=== PATIENT | male | born 1960 | race Caucasian/White ===

== ENCOUNTER → 2016-11-10 | Outpatient (CLI) | payer BC ==
[~2016-11-10] MED LIST: ACET1TAB84 PO; GADAVIST IV PRN; HYZAAR PO; IBUP-103 PO; LOSA100T26 PO; SERT-234 PO
--- NOTE | 2016-11-10 18:50 | DIAGNOSTIC IMAGING REPORT ---
Brain MRI WITH AND WITHOUT CONTRAST HISTORY: Left HAND WEAKNESS/TREMOR TECHNIQUE: Multiplanar multisequence MRI of the brain was performed both before and after the intravenous administration of contrast. COMPARISON STUDY: None. FINDINGS: There are no areas of restricted diffusion to suggest acute infarction. The midline structures are intact. The paranasal sinuses are clear. The mastoid air cells are clear. The ventricles and sulci are within normal limits for age. There is no mass, hematoma, midline shift. The major vascular flow-voids at the skull base are well maintained. Postcontrast sequences show no areas of abnormal enhancement. There is an 11 mm cystic focus lateral to the left pterygopalatine fossa best seen on axial T2 image 7. IMPRESSION: 1. No significant abnormality identified within the brain. No acute intracranial process. 2. An 11 mm cyst lateral to the left pterygopalatine fossa. This has a benign appearance. However, if the patient is experiencing left facial abnormalities then consider ENT follow-up and/or short term MRI follow-up to ensure stability. Electronically signed by: Milad Quinones M.D. 11/10/2016 6:48 PM Dictated Date/Time: 11/10/2016 6:40 PM
== END | disposition home or self-care (01) ==
LOC: C.MRI 17:36
PROVIDERS: ATTEND Family Medicine
DX: M62.81 Muscle weakness (generalized) (principal); G93.0 Cerebral cysts

== ENCOUNTER → 2017-01-04 | Outpatient (CLI) | payer BC ==
[~2017-01-04] MED LIST changes: -GADAVIST IV PRN; -LOSA100T26 PO; +LOSA100T33 PO
[2017-01-04 18:43] LABS: LYME DISEASE AB IGG NEG (NEG)
[2017-01-04 18:44] LABS: LYME DISEASE AB IGM NEG (NEG)
== END | disposition home or self-care (01) ==
LOC: C.LABBC 12:49
PROVIDERS: ATTEND Psychiatry & Neurology Neurology
DX: G47.62 Sleep related leg cramps (principal)

== ENCOUNTER → 2017-03-28 | Day surgery (SDC) | payer BC ==
[2017-03-08 14:18] VITALS: Ht 180.3 cm; Wt 88.6 kg
[~2017-03-28] VITALS: Ht 180.3 cm; Wt 88.6 kg
[~2017-03-28] MED LIST changes: +LIDOCAINE HCL 2% 2 ML VIAL (20MG/ML) ONE; +LOSA100T26 PO; -LOSA100T33 PO; +PROPOFOL IV EMULSION 10 MG/ML 20 ML VIAL IV ONE
[2017-03-28 13:27] VITALS: TEMP 36.8
--- NOTE | 2017-03-28 14:01 | Endo History and Physical ---
History & Physical Date of Service: Mar 28, 2017. Chief Complaint: Screening, Hx of polyps Referring Physician: Mony History of Present Illness 56 yo CM who presents for colonoscopy secondary to history of colon polyps. Past Surgical History Hx Cardiac Surgery: No Hx Internal Defibrillator: No Hx Pacemaker: No Hx Abdominal Surgery: No Hx of Implantable Prosthesis: No Hx Post-Op Nausea and Vomiting: No Hx Cancer Surgery: No Hx Thoracic Surgery: No Hx Orthopedic: No Hx Urinary Tract Surgery: No Family History Polyp Social History Smoking Status: Never Smoker Hx Substance Use: No Hx Alcohol Use: Yes (OCC SOCIAL) Allergies Coded Allergies: Penicillins (Unverified Allergy, Unknown, RASH, 03/28/17) Sulfa Antibiotics (Unverified Allergy, Unknown, RASH, 03/28/17) Current Medications Reported Home Medications Medications Dose Route/Sig Max Daily Dose Days Date Category Dose Instructions Advil (Ibuprofen) 200 Mg Tab 400-600 Mg PO PRN 03/08/17 Reported Tylenol Arthritis Ext Rel (Acetaminophen) 650 Mg Cplt 1,300 Mg PO PRN 03/08/17 Reported Zoloft (Sertraline HCl) 100 Mg Tab 100 Mg PO QPM 03/08/17 Reported [Hyzaar] 1 Tab PO QAM 03/08/17 Reported 100/12.5 MG Vital Signs Weight (Kilograms): 88.64 Height (Feet): 5 Height (Inches): 11 Date Time Temp Pulse Resp B/P (MAP) Pulse Ox O2 Delivery O2 Flow Rate FiO2 03/28/17 13:27 36.8 70 18 127/86 (100) 98 Room Air Physical Exam General Appearance: WD/WN, no apparent distress Respiratory/Chest: Auscultation: breath sounds normal Cardiovascular: Heart Auscultation: RRR Abdomen: Bowel Sounds: normal Inspection & Palpation: soft, non-distended, no tenderness, guarding & rebound Assessment and Plan Assessment: 56 yo CM who presents for colonoscopy secondary to history of colon polyps. Plan: Proceed with colonoscopy.
--- NOTE | 2017-03-28 14:22 | Discharge Instructions ---
Endoscopy Patient Instructions Date / Procedure(s) Performed Mar 28, 2017. Colonoscopy Allergy Information Coded Allergies: Penicillins (Unverified Allergy, Unknown, RASH, 03/28/17) Sulfa Antibiotics (Unverified Allergy, Unknown, RASH, 03/28/17) Discharge Date / Findings Mar 28, 2017. Colon polyp Rectal polyps Diverticulosis Internal hemorrhoids Medication Instructions OK to resume all medications today as prescribed Reported Home Medications Medications Dose Route/Sig Max Daily Dose Days Date Category Dose Instructions Advil (Ibuprofen) 200 Mg Tab 400-600 Mg PO PRN 03/08/17 Reported Tylenol Arthritis Ext Rel (Acetaminophen) 650 Mg Cplt 1,300 Mg PO PRN 03/08/17 Reported Zoloft (Sertraline HCl) 100 Mg Tab 100 Mg PO QPM 03/08/17 Reported [Hyzaar] 1 Tab PO QAM 03/08/17 Reported 100/12.5 MG Provider Instructions Activity Restrictions - No exercising or heavy lifting for 24 hours. - Do not drink alcohol the day of the procedure. - Do not drive a car or operate machinery until the day after the procedure. - Do not make any important decisions or sign important papers in 24 hours after the procedure. Following Day: - Return to full activity which may include returning to work/school. Diet Start your diet with liquids and light foods (jello, soup, juice, toast). Then eat your usual diet if not nauseated. Treatment For Common After Affects For mild abdominal pain, bloating, or excessive gas: - Rest - Eat lightly - Lie on right side Follow-Up Information Follow-up with [facility] as scheduled Anesthesia Information What You Should Know You have had a procedure that required some medicine to reduce anxiety and discomfort. This treatment is called moderate sedation. After receiving the treatment, you may be sleepy, but you will be able to breathe on your own. The effects of the treatment may last for several hours. Follow these instructions along with Activity/Diet recommendations noted above: * Do NOT do anything where dizziness or clumsiness would be dangerous. * Rest quietly at home today, then you can be up and about tomorrow. * Have a responsible person stay with you the rest of today. * You may have had an I.V. today. If so, you may take the dressing off later today. Recommendations Call your doctor if: * Trouble breathing * Continuous vomiting for more than 24 hours * Temperature above 101 degrees * Severe abdominal pain or bloating * Pain not relieved by pain medicine ordered * There is increased drainage or redness from any incision * A large amount of rectal bleeding greater than 2-3 tablespoons. (If you had a polyp/s removed or have hemorrhoids, a small amount of blood - from the rectum is to be expected.) * You have any unanswered questions or concerns. IN THE EVENT OF A SERIOUS EMERGENCY, GO TO THE NEAREST EMERGENCY ROOM Your discharge instructions were prepared by provider Jacob Landaverde. Patient Instructions Signature Page Bravo Mclaughlin Patient (or Guardian) Signature/Date: I have read and understand the instructions given to me by my caregivers. Caregiver/RN/Doctor Signature/Date: The above-named patient and/or guardian has received patient instructions on this date. + Original Patient Signature Page (only) stays with chart. Please make copy for patient.
--- NOTE | 2017-03-28 14:30 | GI REPORT ---
Procedure Date: 03/28/2017 1:21 PM THIS REPORT HAS BEEN AMENDED Addendum Number: 1 Addendum Date: 03/28/2017 4:17:13 PM No polyp was removed from the cecum. Two small polyps were found in the rectum and removed via cold snare. Resection was complete, but the polyp tissue was only partially retrieved. Procedure: Colonoscopy Indications: Screening for colorectal malignant neoplasm Medicines: Monitored Anesthesia Care Complications: No immediate complications. Estimated Blood Loss: Estimated blood loss: none. Procedure: Pre-Anesthesia Assessment: - Prior to the procedure, a History and Physical was performed, and patient medications and allergies were reviewed. The patient's tolerance of previous anesthesia was also reviewed. The risks and benefits of the procedure and the sedation options and risks were discussed with the patient. All questions were answered, and informed consent was obtained. Prior Anticoagulants: The patient has taken no previous anticoagulant or antiplatelet agents. ASA Grade Assessment: II - A patient with mild systemic disease. After reviewing the risks and benefits, the patient was deemed in satisfactory condition to undergo the procedure. After I obtained informed consent, the scope was passed under direct vision. Throughout the procedure, the patient's blood pressure, pulse, and oxygen saturations were monitored continuously. The scope was introduced through the anus and advanced to the terminal ileum. The colonoscopy was performed without difficulty. The patient tolerated the procedure well. The quality of the bowel preparation was good. The terminal ileum, ileocecal valve, appendiceal orifice, and rectum were photographed. Findings: A 4 mm polyp was found in the transverse colon. The polyp was sessile. The polyp was removed with a cold snare. Resection and retrieval were complete. Multiple small-mouthed diverticula were found in the sigmoid colon. A 3 to 4 mm polyp was found in the cecum. The polyp was sessile. The polyp was removed with a cold snare. Resection was complete, but the polyp tissue was only partially retrieved. Non-bleeding internal hemorrhoids were found during retroflexion. The hemorrhoids were small. Impression: - One 4 mm polyp in the transverse colon, removed with a cold snare. Resected and retrieved. - Diverticulosis in the sigmoid colon. - One 3 to 4 mm polyp in the cecum, removed with a cold snare. Complete resection. Partial retrieval. - Non-bleeding internal hemorrhoids. Recommendation: - Resume previous diet. - Continue present medications. - Repeat colonoscopy for surveillance based on pathology results. - Return to primary care physician as previously scheduled. Jacob Thomas Case, DO 03/28/2017 2:29:37 PM This report has been signed electronically. Note Initiated On: 03/28/2017 1:21 PM I attest to the content of the Intraoperative Record and orders documented therein, exceptions below Jacob Thomas Case, DO 03/28/2017 4:18:35 PM This report has been signed electronically.
--- NOTE | 2017-03-28 14:44 | Anesthesiology Progress Note ---
Anesthesia Post Op Note Date & Time Mar 28, 2017 at 14:44 Vital Signs Pain Intensity: 0 Vital Signs Past 12 Hours Date Time Temp Pulse Resp B/P (MAP) Pulse Ox O2 Delivery O2 Flow Rate FiO2 03/28/17 14:30 104/77 (86) 03/28/17 13:27 36.8 70 18 127/86 (100) 98 Room Air Notes Mental Status: alert / awake / arousable, participated in evaluation Pt Amnestic to Procedure: Yes Nausea / Vomiting: adequately controlled Pain: adequately controlled Airway Patency, RR, SpO2: stable & adequate BP & HR: stable & adequate Hydration State: stable & adequate Anesthetic Complications: no major complications apparent
[2017-03-28 14:55] VITALS: BP 120/84; PULSE 56; O2SAT 98
== END | disposition home or self-care (01) ==
LOC: C.GI 13:03
PROVIDERS: ATTEND Internal Medicine
DX: Z12.11 Encounter for screening for malignant neoplasm of colon (principal); D12.3 Benign neoplasm of transverse colon; K62.1 Rectal polyp; K57.30 Diverticulosis of large intestine without perforation or abscess without bleeding; K64.8 Other hemorrhoids; Z83.71 Family history of colonic polyps; Z79.899 Other long term (current) drug therapy

== ENCOUNTER 2017-05-25 11:29 | Emergency (ER) | payer BC ==
[~2017-05-25] VITALS: Ht 180.3 cm; Wt 92.0 kg
[~2017-05-25 11:29] MED LIST changes: -LIDOCAINE HCL 2% 2 ML VIAL (20MG/ML) ONE; -LOSA100T26 PO; -PROPOFOL IV EMULSION 10 MG/ML 20 ML VIAL IV ONE
[2017-05-25 11:35] VITALS: TEMP 36.4; O2SAT 96
[2017-05-25] MEDS ORDERED: SODIUM CHLORIDE 0.9% 500ML 500 ML IV STA (11:51)
[2017-05-25] MEDS ORDERED: SODIUM CHLORIDE 0.9% 1000ML 1,000 ML IV STA ×2 (11:51→12:07)
[2017-05-25 11:59] LABS: BASO % 0.6 %; BASO ABS # 0.02 K/uL (0-0.2); COMPLETE YES; EOS % 3.1 %; HEMATOCRIT 43.7 % (42-52); LYMPH % 43.4 %; LYMPH ABS # 1.41 K/uL (1.2-3.4); MEAN CELL VOLUME 92.4 fL (80-100); MEAN CORPUSCULAR HEMOGLOBIN 32.1 pg (25-34); MEAN CORPUSCULAR HGB CONC 34.8 g/dl (32-36); MEAN PLATELET VOLUME 11.1 fL (7.4-10.4); MONO % 11.7 %; NEUT % 41.2 %; PLATELET COUNT 173 K/uL (130-400); RED BLOOD COUNT 4.73 M/uL (4.7-6.1); WHITE BLOOD COUNT 3.25 K/uL (4.8-10.8)
[2017-05-25 12:11] LABS: PARTIAL THROMBOPLASTIN RATIO 0.9; PROTHROMBIN TIME (PATIENT) 10.7 SECONDS (9.0-12.0)
[2017-05-25 12:15] VITALS: Ht 180.3 cm; Wt 92.0 kg
[2017-05-25 12:18] LABS: ALT/SGPT 26 U/L (12-78); AST/SGOT 22 U/L (15-37); BLOOD UREA NITROGEN 19 mg/dl (7-18); BUN/CREATININE RATIO 19.3 (10-20); CALCIUM 9.5 mg/dl (8.5-10.1); CARBON DIOXIDE 26 mmol/L (21-32); CHLORIDE 108 mmol/L (98-107); CREATININE 0.96 mg/dl (0.60-1.40); GLUCOSE 112 mg/dl (70-99); MAGNESIUM 2.1 mg/dl (1.8-2.4); POTASSIUM 3.8 mmol/L (3.5-5.1); SODIUM 140 mmol/L (136-145)
[2017-05-25 12:29] LABS: ALKALINE PHOSPHATASE 49 U/L (45-117); CKMB/CK RATIO 1.9 (0-3.0)
--- NOTE | 2017-05-25 12:49 | DIAGNOSTIC IMAGING REPORT ---
CT SCAN OF THE ABDOMEN AND PELVIS WITHOUT CONTRAST CLINICAL HISTORY: left LLQ pain, syncope COMPARISON STUDY: No previous studies for comparison. TECHNIQUE: CT scan of the abdomen and pelvis was performed from the lung bases to the proximal femurs. Images are reviewed in the axial, sagittal, and coronal planes. IV contrast was not administered for this examination. A dose lowering technique was utilized adhering to the principles of ALARA. CT DOSE: 1494.81 mGy.cm FINDINGS: Lower chest: There are mild dependent atelectatic changes. There is a small hiatal hernia Liver: The unenhanced liver is normal in size, contour, and attenuation. There is no intrahepatic biliary ductal dilatation. Gallbladder: Unremarkable. Spleen: Normal in size and attenuation. Pancreas: Unremarkable. Adrenal glands: There is minor left adrenal gland thickening Kidneys: There is bilateral perinephric stranding. There is a punctate nonobstructing right renal calculus there is a punctate nonobstructing right renal calculus. There is a 28 mm right renal cyst. No ureteral or bladder calculi are visualized. Bowel: There are no transition zones to indicate bowel obstruction. The appendix appears normal. There is suspected fecal impaction. The rectum measures 9 cm in transverse diameter. Peritoneum: There is no intraperitoneal free air or abdominal ascites. There is small fat-containing left inguinal hernia Vasculature: The abdominal aorta is normal in course and caliber. Adenopathy: None. Pelvic viscera: The bladder, and pelvic viscera are unremarkable. Skeletal structures: No destructive osseous lesions are seen. IMPRESSION: 1. Increased fecal load with suspected rectal fecal impaction. The rectum measures 9 cm in transverse diameter. 2. Bilateral nonobstructing renal calculi 3. Normal appendix Electronically signed by: Markus Garcia M.D. 05/25/2017 12:47 PM Dictated Date/Time: 05/25/2017 12:42 PM
--- NOTE | 2017-05-25 13:13 | DIAGNOSTIC IMAGING REPORT ---
CHEST ONE VIEW PORTABLE CLINICAL HISTORY: Weakness COMPARISON STUDY: No previous studies for comparison. FINDINGS: The cardiac and mediastinal contours are normal. There is no evidence of focal pulmonary consolidation. There is no evidence of failure. No pleural effusions are visualized.[ IMPRESSION: No active disease in the chest. Electronically signed by: Markus Garcia M.D. 05/25/2017 1:12 PM Dictated Date/Time: 05/25/2017 1:12 PM
[2017-05-25 13:19] LABS: MANUAL MICROSCOPIC REQUIRED? NO; REVIEW REQ? NO; URINE APPEARANCE CLEAR (CLEAR); URINE BILIRUBIN NEG (NEG); URINE COLOR YELLOW; URINE NITRITE NEG (NEG); URINE PH 7.5 (4.5-7.5); URINE SPECIFIC GRAVITY 1.017 (1.000-1.030); UROBILINOGEN NEG (NEG)
[2017-05-25] MEDS ORDERED: LOSA100T26 PO (13:51)
[2017-05-25 14:41] VITALS: BP 137/99; PULSE 75; O2SAT 98
--- NOTE | 2017-05-25 17:59 | EMERGENCY ROOM VISIT NOTE ---
History Report prepared by Ki: Alexandre Maki Under the Supervision of: Dr. Brenden Zimmerman M.D. First contact with patient: 11:51 Chief Complaint: SYNCOPE (NEAR SYNCOPE) Stated Complaint: WEAKNESS Nursing Triage Summary: Patient presents to ED via [facility] ambulance with c/o near syncopal episode Patient had a bowel movement and following it, he became diaphoretic, nausea, and "shaky". He felt as though he would pass out. He reports that his appetite and fluid intake have been decreased He has some ulcers in his mouth His is at bedside and she is a RN History of Present Illness The patient is a 56 year old male who presents to the Emergency Room by EMS with complaints of near syncopal episode occurring just prior to arrival. He states that his symptoms occurred after a bowel movement. He notes that he felt constipated during this. The patient states that he became diaphoretic, had visual changes, and difficulty speaking during the episode. He currently complains of generalized weakness. He states that he felt totally normal this morning. The patient notes that he has been drinking a lot of soda, and not a lot of water recently and feels dehydrated. He states that his symptoms persisted while en route in the ambulance. He estimates the worst of his symptoms lasted for 25 minutes. Pt denies LOC, headache, fevers, chills, diaphoresis, neck pain, chest pain, breathing difficulties, nausea, vomiting, back pain, melena, hematochezia, urinary symptoms, numbness, weakness, lymphadenopathy, rash, or other complaints. He notes that he has some abnormal abdominal pain. He had a recent colonoscopy which revealed internal hemorrhoids , diverticulosis and some polyps which were removed. Source of History: patient Onset: Just prior to arrival Quality: other (near-syncope) Timing: other (episode) Associated Symptoms: + diaphoresis, + weakness (generalized) Note: Additional symptoms: constipation, visual changes and difficulty speaking. Review of Systems See HPI for pertinent positives and negatives. A total of ten systems were reviewed and were otherwise negative. Past Medical & Surgical Medical Problems: (1) HTN (hypertension) Family History No pertinent family history stated. Social History Smoking Status: Never Smoker Marital Status: Occupation Status: employed Current/Historical Medications Scheduled Hctz/Losartan (Hyzaar 12.5MG/100MG), 1 TAB PO DAILY Allergies Coded Allergies: Penicillins (Verified Allergy, Unknown, RASH, 05/25/17) Sulfa Antibiotics (Verified Allergy, Unknown, RASH, 05/25/17) Physical Exam Vital Signs Date Time Temp Pulse Resp B/P (MAP) Pulse Ox O2 Delivery O2 Flow Rate FiO2 05/25/17 14:41 75 16 137/99 98 05/25/17 13:54 71 16 128/89 98 Room Air 74 131/94 79 132/95 05/25/17 13:18 65 20 135/89 96 Room Air 05/25/17 12:58 Room Air 05/25/17 11:44 59 05/25/17 11:35 96 Room Air 05/25/17 11:35 36.4 63 16 128/92 96 Room Air Physical Exam GENERAL: Awake, alert, well-appearing, in no distress HENT: Normocephalic, atraumatic. Oropharynx unremarkable. EYES: Normal conjunctiva. Sclera non-icteric. NECK: Supple. No nuchal rigidity. FROM. No JVD. RESPIRATORY: Clear to auscultation. CARDIAC: Regular rate, normal rhythm. Extremities warm and well perfused. Pulses equal. ABDOMEN: Soft, non-distended. LLQ tenderness to palpation. No rebound or guarding. No masses. RECTAL: Deferred. MUSCULOSKELETAL: Chest examination reveals no tenderness. The back is symmetrical on inspection without obvious abnormality. There is no CVA tenderness to palpation. No joint edema. LOWER EXTREMITIES: Calves are equal size bilaterally and non-tender. No edema. No discoloration. NEURO: Normal sensorium. No sensory or motor deficits noted. SKIN: No rash or jaundice noted. Medical Decision & Procedures ER Provider Diagnostic Interpretation: Radiology results as stated below per my review and radiologist interpretation: CHEST ONE VIEW PORTABLE FINDINGS: The cardiac and mediastinal contours are normal. There is no evidence of focal pulmonary consolidation. There is no evidence of failure. No pleural effusions are visualized.[ IMPRESSION: No active disease in the chest. Electronically signed by: Markus Garcia M.D. 05/25/2017 1:[address] SCAN OF THE ABDOMEN AND PELVIS WITHOUT CONTRAST FINDINGS: Lower chest: There are mild dependent atelectatic changes. There is a small hiatal hernia Liver: The unenhanced liver is normal in size, contour, and attenuation. There is no intrahepatic biliary ductal dilatation. Gallbladder: Unremarkable. Spleen: Normal in size and attenuation. Pancreas: Unremarkable. Adrenal glands: There is minor left adrenal gland thickening Kidneys: There is bilateral perinephric stranding. There is a punctate nonobstructing right renal calculus there is a punctate nonobstructing right renal calculus. There is a 28 mm right renal cyst. No ureteral or bladder calculi are visualized. Bowel: There are no transition zones to indicate bowel obstruction. The appendix appears normal. There is suspected fecal impaction. The rectum measures 9 cm in transverse diameter. Peritoneum: There is no intraperitoneal free air or abdominal ascites. There is small fat-containing left inguinal hernia Vasculature: The abdominal aorta is normal in course and caliber. Adenopathy: None. Pelvic viscera: The bladder, and pelvic viscera are unremarkable. Skeletal structures: No destructive osseous lesions are seen. IMPRESSION: 1. Increased fecal load with suspected rectal fecal impaction. The rectum measures 9 cm in transverse diameter. 2. Bilateral nonobstructing renal calculi 3. Normal appendix Electronically signed by: Markus Garcia M.D. 05/25/2017 12:47 PM Laboratory Results 05/25/17 11:35 Red Blood Count 4.73, Mean Corpuscular Volume 92.4, Mean Corpuscular Hemoglobin 32.1, Mean Corpuscular Hemoglobin Concent 34.8, Mean Platelet Volume 11.1, Neutrophils (%) (Auto) 41.2, Lymphocytes (%) (Auto) 43.4, Monocytes (%) (Auto) 11.7, Eosinophils (%) (Auto) 3.1, Basophils (%) (Auto) 0.6, Neutrophils # (Auto ) 1.34, Lymphocytes # (Auto) 1.41, Monocytes # (Auto) 0.38, Eosinophils # (Auto ) 0.10, Basophils # (Auto) 0.02 05/25/17 11:35 Test 05/25/17 11:35 05/25/17 11:36 05/25/17 13:00 White Blood Count 3.25 K/uL (4.8-10.8) Red Blood Count 4.73 M/uL (4.7-6.1) Hemoglobin 15.2 g/dL (14.0-18.0) Hematocrit 43.7 % (42-52) Mean Corpuscular Volume 92.4 fL (80-100) Mean Corpuscular Hemoglobin 32.1 pg (25-34) Mean Corpuscular Hemoglobin Concent 34.8 g/dl (32-36) Platelet Count 173 K/uL (130-400) Mean Platelet Volume 11.1 fL (7.4-10.4) Neutrophils (%) (Auto) 41.2 % Lymphocytes (%) (Auto) 43.4 % Monocytes (%) (Auto) 11.7 % Eosinophils (%) (Auto) 3.1 % Basophils (%) (Auto) 0.6 % Neutrophils # (Auto) 1.34 K/uL (1.4-6.5) Lymphocytes # (Auto) 1.41 K/uL (1.2-3.4) Monocytes # (Auto) 0.38 K/uL (0.11-0.59) Eosinophils # (Auto) 0.10 K/uL (0-0.5) Basophils # (Auto) 0.02 K/uL (0-0.2) RDW Standard Deviation 41.9 fL (36.4-46.3) RDW Coefficient of Variation 12.4 % (11.5-14.5) Immature Granulocyte % (Auto) 0.0 % Immature Granulocyte # (Auto) 0.00 K/uL (0.00-0.02) Prothrombin Time 10.7 SECONDS (9.0-12.0) Prothromb Time International Ratio 1.0 (0.9-1.1) Activated Partial Thromboplast Time 22.4 SECONDS (21.0-31.0) Partial Thromboplastin Ratio 0.9 Anion Gap 6.0 mmol/L (3-11) Est Creatinine Clear Calc Drug Dose 97.2 ml/min Estimated GFR () 100.6 Estimated GFR (Non- 86.8 BUN/Creatinine Ratio 19.3 (10-20) Calcium Level 9.5 mg/dl (8.5-10.1) Magnesium Level 2.1 mg/dl (1.8-2.4) Total Bilirubin 0.6 mg/dl (0.2-1) Direct Bilirubin 0.2 mg/dl (0-0.2) Aspartate Amino Transf (AST/SGOT) 22 U/L (15-37) Alanine Aminotransferase (ALT/SGPT) 26 U/L (12-78) Alkaline Phosphatase 49 U/L (45-117) Total Creatine Kinase 140 U/L (39-308) Creatine Kinase MB 2.6 ng/ml (0.5-3.6) Creatine Kinase MB Ratio 1.9 (0-3.0) Troponin I < 0.015 ng/ml (0-0.045) Total Protein 7.2 gm/dl (6.4-8.2) Albumin 4.1 gm/dl (3.4-5.0) Thyroid Stimulating Hormone (TSH) 2.210 uIu/ml (0.300-4.500) Bedside Glucose 104 mg/dl (70-99) Urine Color YELLOW Urine Appearance CLEAR (CLEAR) Urine pH 7.5 (4.5-7.5) Urine Specific [place] 1.017 (1.000-1.030) Urine Protein NEG (NEG) Urine Glucose (UA) NEG (NEG) Urine Ketones NEG (NEG) Urine Occult Blood NEG (NEG) Urine Nitrite NEG (NEG) Urine Bilirubin NEG (NEG) Urine Urobilinogen NEG (NEG) Urine Leukocyte Esterase NEG (NEG) Laboratory results reviewed by me Medications Administered Medications (Trade) Dose Ordered Sig/Alessio Route Start Time Stop Time Status Last Admin Dose Admin Sodium Chloride 1,000 ml @ 125 mls/hr Q8H STAT IV 05/25/17 11:51 05/25/17 15:08 DC 05/25/17 12:14 125 MLS/HR Sodium Chloride 1,000 ml @ 999 mls/hr Q1H1M STAT IV 05/25/17 12:07 05/25/17 13:07 DC 05/25/17 12:14 999 MLS/HR ECG Indication: syncope (near) Rate (beats per minute): 61 Rhythm: sinus rhythm Findings: 1st degree AV block, no acute ischemic change, no ectopy ED Course 1201: The patient was evaluated in room B6. A complete history and physical exam was performed. Ordered Sodium Chloride 500 ml @ 999 mls/hr IV, Sodium Chloride 1000 ml @ 125 mls/hr IV. 1207: Ordered Sodium Chloride 1000 ml @ 999 mls/hr IV. 1302: I reassessed the patient. He is resting comfortably. He reports that he had a large bowel movement recently. 1410: I reevaluated the patient. Discussed results and discharge instructions: he verbalized understanding and agreement. The patient is ready for discharge. Medical Decision Prior records/ancillary studies reviewed. Triage Nursing notes reviewed and agree them. Additional history obtained from the family. The patient's history was concerning for near syncope. Differential diagnosis: Etiologies such as infection, hypoglycemia, electrolyte abnormalities, cardiac sources, intracerebral event, toxicologic, neurologic, as well as others were entertained. Physical examination: Patient was evaluated. He was tender in the left lower quadrant. He was doing better after IV hydration was initiated. ER treatment provided: IV hydration with normal saline On reassessment the patient felt better. Diagnostics interpretation by me: ECG: Normal as above. The labs revealed an unremarkable CBC and chemistry panel. Urinalysis unremarkable. Imaging studies: CT scan as above. The patient has a significant fecal impaction noted on CT scan. He noted trying to have a bowel movement and then had what sounded consistent with a vagal episode. Just after CT imaging patient had the urge to go and did have a significant bowel movement. He noted it was hard and then a significant amount of stool came out afterwards. He feels significantly better and is now having no abdominal discomfort. The patient was observed. He was taking oral fluids. He was doing well. I discussed conservative management with the patient and his . They feel very comfortable. I gave my usual and customary discussion regarding this issue. By the evaluation outlined above emergent etiologies such as infection, hypoglycemia, electrolyte abnormalities, cardiac sources, intracerebral event, toxicologic, neurologic,as well as others were deemed relatively unlikely. The patient and were informed about the findings as listed above. All questions were answered and they were pleased with the treatment. Return instructions were outlined and the patient was discharged in stable condition. Outpatient prescription management: None Referral: The patient was referred back to his primary care physician for follow-up in 2 to 3 days for a recheck of the current condition. Medication Reconcilliation Current Medication List: was personally reviewed by me Blood Pressure Screening Patient's blood pressure: Normal blood pressure Blood pressure disposition: Did not require urgent referral Impression Primary Impression: Near syncope Additional Impression: Fecal impaction Scribe Attestation The scribe's documentation has been prepared under my direction and personally reviewed by me in its entirety. I confirm that the note above accurately reflects all work, treatment, procedures, and medical decision making performed by me. Departure Information Dispostion Home / Self-Care Referrals Bob Flores MD (PCP) Forms HOME CARE DOCUMENTATION FORM, IMPORTANT VISIT INFORMATION Patient Instructions My [facility] Additional Instructions Rest and drink plenty of fluids. Increase fiber in your diet. Return to the ER for worsening abdominal pain, vomiting, fevers, bloody stools, or as needed. Acetaminophen(Tylenol) may be used for fever or pain. Use 1000mg every six hours as needed. Avoid using more than 4000mg in a 24 hour period. Rest and drink plenty of fluids as tolerated. Continue current medications. Return to the ER for passing out, chest pain, headache, persistent vomiting, fevers, abdominal pain, chest pains, difficulty breathing, black or bloody stools, worsening of your condition, or as needed. Follow up with your primary physician in 2-3 days for a recheck of your current condition Problem Qualifiers
== END 2017-05-25 14:47 | disposition home or self-care (01) ==
LOC: EDBD 11:29 → C.EDB 11:31
DX: R55 Syncope and collapse (principal); K56.41 Fecal impaction; K12.1 Other forms of stomatitis; K64.8 Other hemorrhoids; K57.90 Diverticulosis of intestine, part unspecified, without perforation or abscess without bleeding; I10 Essential (primary) hypertension; I44.0 Atrioventricular block, first degree

== ENCOUNTER → 2017-08-28 | Outpatient (CLI) | payer BC ==
[~2017-08-28] MED LIST changes: -ACET1TAB84 PO; +GADAVIST IV PRN; -HYZAAR PO; -IBUP-103 PO; +LOSA100T33 PO; -SERT-234 PO
--- NOTE | 2017-08-28 22:34 | DIAGNOSTIC IMAGING REPORT ---
MRI OF THE NECK WITH AND WITHOUT CONTRAST CLINICAL HISTORY: Abnormal head MRI. COMPARISON STUDY: MRI of the brain November 10, 2016. TECHNIQUE: Utilizing a 1.5 Aundrea magnet and dedicated coil, multiplanar, multiecho imaging of the neck was performed pre and postcontrast administration. Injection of 9 cc of Gadavist IV was uneventful. FINDINGS: A 1.1 x 0.8 x 1 cm nonenhancing T2 hyperintense focus lateral to the left pterygopalatine fossa is unchanged since MRI of November 10, 2016. No cervical lymphadenopathy or cervical masses are identified. The parotid, submandibular and thyroid glands are within normal limits by MRI. There is no fluid collection to suggest an abscess within the neck. The epiglottis is normal. No mucosal lesion is identified by MRI. No suspicious marrow replacement is present. Visualized portions the lung apices are suboptimally assessed by MRI but are grossly clear. IMPRESSION: 1. No change in the 1.1 cm cyst lateral to the left pterygopalatine fossa since MRI of November 10, 2016. This has benign imaging characteristics. 2. No cervical lymphadenopathy. No cervical mass. Unremarkable MRI of the neck. Electronically signed by: Sadi Charles M.D. 08/28/2017 10:32 PM Dictated Date/Time: 08/28/2017 10:15 PM
--- NOTE | 2017-08-28 22:34 | DIAGNOSTIC IMAGING REPORT ---
FACIAL MRI WITH AND WITHOUT CONTRAST CLINICAL HISTORY: Abnormal head MRI. Left facial pressure. COMPARISON STUDY: MRI of the brain November 10, 2016. TECHNIQUE: Utilizing a 1.5 Aundrea magnet, multiplanar, multi echo imaging of the face was performed pre and postcontrast administration. Injection of 9 cc of Gadavist IV was uneventful. FINDINGS: Visualized portions of the intracranial contents are unremarkable. Specifically, the ventricular system is normal. The basilar cisterns are patent. There are no extra-axial collections. No areas of significant parenchymal signal abnormality are present. No intracranial mass or pathologic enhancement is identified. A 1.1 x 0.8 x 1 cm nonenhancing T2 hyperintense focus lateral to the left pterygopalatine fossa is unchanged since MRI of November 10, 2016. No additional facial lesions are identified on this examination. There is minimal polypoid mucosal thickening of the right ethmoid and right maxillary sinuses. Orbits are unremarkable. The parotid and submandibular glands are normal. Visualized portions of the neck are unremarkable however the MRI of the neck will be reported separately. IMPRESSION: 1. No change in the 1.1 cm cyst lateral to the left pterygopalatine fossa since MRI of November 10, 2016. This has benign imaging characteristics. 2. Otherwise, unremarkable facial MRI. Electronically signed by: Sadi Charles M.D. 08/28/2017 10:32 PM Dictated Date/Time: 08/28/2017 7:47 PM
== END | disposition home or self-care (01) ==
LOC: C.MRI 18:03
PROVIDERS: ATTEND Physician Assistant
DX: R93.0 Abnormal findings on diagnostic imaging of skull and head, not elsewhere classified (principal); G93.0 Cerebral cysts

== ENCOUNTER 2025-06-24 15:48 | Observation (INO) ==
[2025-06-24] MEDS: OPTIRAY 320 125ml IV ONE (16:31)
[2025-06-24] MEDS: ONDANSETRON INJ 2 MG/ML 2 ML VIAL IV STA (16:31)
[2025-06-24] MEDS: SODIUM CHLORIDE 0.9% 1,000 ML IV ONE (16:31)
[2025-06-24 16:34] LABS: Hematocrit (blood only) 41.1 % (42.0-52.0); Hemoglobin 14.7 g/dl (14.0-18.0); Immature Granulocytes # (auto) 0.02 K/uL (0.01-0.20); Immature Granulocytes % (auto) 0.3 %; Mean Corpuscular Hemoglobin 32.0 pg (25.0-34.0); Mean Corpuscular Volume 89.5 fL (80.0-100.0); Platelet Count 191 K/uL (130-400); RDW Standard Deviation 41.4 fL (36.4-46.3); Red Blood Count 4.59 M/uL (4.70-6.10); White Blood Count 5.81 K/ul (4.8-10.8)
[2025-06-24 16:50] LABS: Anion Gap 11 (3-11); Blood Urea Nitrogen 20 mg/dl (6-23); Calcium 10.1 mg/dl (8.6-10.3); Carbon Dioxide 25 mmol/L (21-32); Chloride 100 mmol/L (98-107); Creatinine Clr Calc Pharmacy 92.6 ml/min; Glucose 127 mg/dl (70-99(Fasting)); Potassium 3.3 mmol/L (3.5-5.1); Sodium 136 mmol/L (136-145)
--- NOTE | 2025-06-24 16:50 | CT Scan Report ---
Clinical History: Possible stroke. Technique: Axial computed tomography images were obtained of the brain from the vertex to the skull base without intravenous contrast. Findings: There is no sign of intracranial hemorrhage. There is normal estrella-white matter differentiation with no sign of acute or old infarction. No midline shift or other form of herniation is identified. There is no hydrocephalus. No obvious mass lesion is seen on this noncontrast examination. The visualized portions of the orbits and paranasal sinuses appear unremarkable. The mastoid air cells appear clear Impression: Unremarkable noncontrast CT of the brain These findings were discussed with Dr. Vasquez at 4:48 PM on 06/24/2025 Electronically signed by Jason Armas 06-24-2025 4:49 PM
[2025-06-24 16:52] LABS: Alanine Aminotransferase < 3 U/L (7-52); Albumin Globulin Ratio 1.3 (0.9-2); Albumin Level 4.2 gm/dl (3.4-5.0); Alkaline Phosphatase 49 U/L (34-104); Bilirubin,Total 0.7 mg/dl (0.2-1.0); Globulin 3.2 gm/dl (2.5-4.0); Magnesium 1.9 mg/dl (1.7-2.4); Total Protein 7.4 gm/dl (6.0-8.3)
--- NOTE | 2025-06-24 16:52 | CT Scan Report ---
Technique: Axial computed tomography images were obtained of the brain after the administration of intravenous contrast according to the CT angiogram protocol Findings: No definite stenosis or aneurysm is seen of the anterior, middle, or posterior cerebral artery circulations. The visualized vertebral arteries and the basilar artery appear unremarkable Impression: No definite stenosis or aneurysm of the intracranial arteries These findings were discussed with Dr. Vasquez at 4:48 PM on 06/24/2025 Electronically signed by Jason Armas 06-24-2025 4:50 PM
--- NOTE | 2025-06-24 16:53 | CT Scan Report ---
Technique: Axial computed tomography images were obtained of the neck after the administration of intravenous contrast according to the CT angiogram protocol Findings: No stenosis is seen of the common carotid arteries bilaterally. There is mild plaque within the carotid bulbs bilaterally, without significant stenosis. The remainder of the internal carotid arteries appear patent bilaterally. No stenosis of the external carotid arteries is seen The vertebral arteries are patent bilaterally with no significant stenosis seen. The visualized thoracic aorta appears unremarkable There is multilevel degenerative disc disease and osteoarthritis of the cervical spine. Impression: No definite stenosis of the neck arteries Electronically signed by Jason Armas 06-24-2025 4:52 PM
[2025-06-24 17:11] LABS: INR 1.0 (0.9-1.1); Partial Thromboplastin Time 21 Seconds (21-31); Prothrombin Time 10.4 Seconds (9.0-12.0)
--- NOTE | 2025-06-24 17:41 | History & Physical Report ---
Date of Service June 24, 2025 Assessment & Plan (1) Dizziness: (2) Nausea & vomiting: (3) Prediabetes: (4) Facial droop: (5) Parkinsonism: (6) HTN (hypertension): (7) Hypokalemia: Plan Pleasant 64yo male with Parkinson's disease, anxiety disorder, HTN, pre-T2DM, and chronic insomnia presents with severe dizziness along with nausea/vomiting starting earlier today after having a dental cleaning at his local dentist office. #severe dizziness, nausea, vomiting - -although he does not describe discrete vertigo, his symptoms are worsened by movement and in particular head movements -he does not have visual complaints, neuro exam is wnl, and denies any tinnitus or hearing loss today -he denies chronic orthostatic symptoms, but did c/o being thirsty during the visit and his mouth is very dry -further, his HCTZ dose was increased about 2 weeks ago -suspect that if we had the ability to check his orthostatic BPs they would be positive -in light of ?right facial droop along with his presenting symptoms will obtain MRI brain - r/o acute CVA -rectal aspirin ordered by ER physician at recommendation of telestroke -of note - by the time of my assessment there was no facial droop or asymmetry, and neuro exam was wnl -give 2 liters of IV fluid, keep NPO except sips/chips/meds due to severe nausea/vomiting, and hold HCTZ; also lower losartan dose by 1/2 -in the event this is some form of atypical vertigo will give meclizine 25mg PO x 1 now -PT/OT evals tomorrow -consider neuro evaluation if symptoms are refractory/persistent or if MRI brain is + for CVA -check lipids, a1c in am as part of TIA/stroke work-up #hypokalemia - -add IV KCL to his IV fluids -repeat BMP am -mag level wnl today -hold HCTZ #HTN - -hold HCTZ -lower losartan dose by 1/2 until we can check formal orthostatic BPs #Parkinson's disease - -follows with [facility] in [place] -patient is on non-formulary medicine for his PD - to bring home stock; order written to allow home use of Crexont -PT/OT evals #anxiety disorder - -long-standing, severe at times -if nausea/vomiting persist consider low-dose ativan to help with GI symptoms and anxiety #pre-DM - -check a1c in am #chronic constipation - -cont daily dulcolax -consider adding miralax as well (patient reports a small, hard stool earlier today) #DVT proph - -add chemical means if he stays hospitalized beyond tomorrow pt's updated at bedside during the admission process History of Present Illness Chief Complaint: severe dizziness, nausea, vomiting Primary Care Provider: NO PCP Pleasant 64yo male with Parkinson's disease, anxiety disorder, HTN, pre-T2DM, and chronic insomnia presents with severe dizziness along with nausea/vomiting starting earlier today after having a dental cleaning at his dentist. Mr Mclaughlin was in his usual state of health prior to going to the dentist. In fact he walked his dog this am and had no problem with such. At the dental office he was having a routine cleaning. He was in the chair for at least 30 minutes. He felt that his neck was being stretched while in the chair and he simply was uncomfortable. When the cleaning was finished he attempted to sit up in the chair and had immediate dizziness and nausea. The dizziness was NOT a spinning sensation/vertigo/rotational feeling. He stated the dizziness feels like he could pass out. He vomited while at the dental office and also had loss of urine (patient himself did not mention this, but it was in his ER record). He denies having had diplopia, visual field cut, sensory loss of any limb, difficulty speaking, or motor difficulty. However, after being brought to the ER by his , there was some concern for right facial droop. Due to this concern a stroke alert was called. By report the stroke physician recommended lytic therapy but this was declined by the patient. During my admission assessment he was anxious and tearful. He repeatedly said that he "simply does not feel well." At one point while I was examining him he developed nausea again but fortunately he did not vomit. Patient reports no recent illnesses. His HCTZ dose was increased to 25mg BID about 2 weeks ago. He was also started on metformin once daily recently. Allergies Allergy/AdvReac Type Severity Reaction Status Date / Time Penicillins Allergy Intermediate RASH Verified 06/24/25 18:56 Sulfa (Sulfonamide Allergy Intermediate RASH Verified 06/24/25 18:56 Antibiotics) Home Medications Medication Instructions Recorded Confirmed Type hydrochlorothiazide 25 mg tablet 25 mg PO BID 03/15/23 06/24/25 History losartan 100 mg tablet 100 mg PO HS 03/15/23 06/24/25 History carbidopa 70 mg-levodopa ER 280 mg 2 cap PO TID 06/24/25 06/24/25 History capsule,immed and extended release (Crexont) metformin 500 mg tablet,extended 500 mg PO QDD 06/24/25 06/24/25 History release 24 hr modafinil 100 mg tablet 100 mg PO QAM 06/24/25 06/24/25 History Past Med/Surg History Problem List (Updated 06/24/25 @ 20:51 by Reilly Nice MD) Hypokalemia Nausea & vomiting Prediabetes Facial droop (Acute) Dizziness (Acute) Encounter for pre-operative examination Fecal impaction (Acute) Near syncope (Acute) Paresthesia (Acute) Nocturnal leg cramps (Acute) Neutropenia (Acute) Abnormal head MRI (Acute) Medical History (Updated 06/24/25 @ 20:51 by Reilly Nice MD) Ulnar neuropathy of both upper extremities Parkinsonism Atypical Parkinsonism HTN (hypertension) History of colon polyps History of COVID-19 10/2022- home test- fever, aches, pains, cough; resolved Surgical History Hx of colonoscopy History of tonsillectomy Family History (Updated 06/24/25 @ 20:42 by Reilly Nice MD) Father Acute bacterial endocarditis Hypertension Mother Diabetes Hypertension Stroke Brother Stroke Social History (Updated 06/24/25 @ 20:42 by Reilly Nice MD) Smoking Status: Never smoker Second Hand Exposure: No; Do You Dip or Chew Tobacco: No; Tobacco Cessation Education Requested by Patient: No Hx Alcohol Use: No Hx Substance Use: No Preferred Language: Setswana Communication Ability: Effective Gi Asst Required: No Beliefs That Will Affect Care: None marital status: Current Living Situation: Spouse current occupation: retired school guidance counselor How many Children do You have: 2 Other Information That Helps Us Care for You: No Feels Safe at Home: Yes Safety Concerns: Feels Safe At This Time Assistive Devices: Contacts and Glasses Review of Systems Review of Systems: gen - no fevers or chills; recent appetite wnl eyes - chronic visual difficulties but no diplopia today nor any visual field cuts HENT - no ear pain, sore throat, URI symptoms; no acute tinnitus or hearing loss CV - no chest pain pulm - no dyspnea, no cough GI - nausea with emesis; stomach feels "tight" everywhere; no diarrhea; +constipation; no blood per rectum - no dysuria musculo - neck discomfort starting during the dental cleaning; no other joint pains neuro - tremors from Parkinson's; no headache skin - no rash psych - severe anxiety Physical Exam Physical Exam: gen - awake, alert, lying in bed, anxious, tearful at times eyes - PERRL, about 2mm; EOMI; no nystagmus; visual lynn full by direct confrontation HENT - no facial droop (symmetric cheeks, symmetric smile); mouth - dry MM, no lesions neck - no bruits, JVD, or lymph nodes; no goiter heart - RRR, s1 s2, no murmur lungs - CTA b/l abd - soft, mildly distended, BS+, NT, no HSM ext - no edema, pulses 2+ b/l skin - no rash neuro - CN 3-12 intact; speech clear/fluent (no aphasia, no dysarthria); no facial droop; finger/nose/finger maneuver w/o ataxia; strength 5/5 x 4 exts; DTRs 2+ b/l upper & lower ext; tremor left hand/arm psych - a/o x 3, anxious Results & Data Results & Data Vital Signs (Past 12 Hours) Vital Signs Temp Pulse Pulse Resp BP BP Pulse Ox 06/24/25 17:00 69 18 147/93 H 97 06/24/25 16:45 65 22 137/88 97 06/24/25 16:42 63 20 99 06/24/25 16:42 62 06/24/25 16:09 06/24/25 16:09 65 28 H 137/86 97 06/24/25 16:09 98 06/24/25 15:50 36.5 C 69 20 134/84 95 O2 Del Method 06/24/25 17:00 Room Air 06/24/25 16:45 Room Air 06/24/25 16:42 06/24/25 16:42 06/24/25 16:09 Room Air 06/24/25 16:09 Room Air 06/24/25 16:09 Room Air 06/24/25 15:50 Room Air Laboratory Results Laboratory Results - last 24 hr 06/24/25 06/24/25 06/24/25 16:10 16:19 18:00 WBC 5.81 RBC 4.59 L Hgb 14.7 POC Hgb 14.6 Hct 41.1 L POC Hct 43 MCV 89.5 MCH 32.0 MCHC 35.8 RDW Std Deviation 41.4 RDW Coeff of Elinor 12.7 Plt Count 191 MPV 10.8 Immature Gran % (Auto) 0.3 Neut % (Auto) 45.9 Lymph % (Auto) 36.0 Hartley % (Auto) 14.5 Eos % (Auto) 2.6 Baso % (Auto) 0.7 Neut # (Auto) 2.67 Lymph # (Auto) 2.09 Hartley # (Auto) 0.84 H Eos # (Auto) 0.15 Baso # (Auto) 0.04 Immature Gran # (Auto) 0.02 PT 10.4 INR 1.0 APTT 21 PTT Ratio 0.8 POC Sodium 137 Sodium 136 POC Potassium 3.2 L Potassium 3.3 L POC Chloride 100 L Chloride 100 Carbon Dioxide 25 POC Total CO2 25 Anion Gap 11 POC Anion Gap 16.0 POC BUN 23 H BUN 20 Creatinine 0.96 POC Creatinine 1.0 Est Cr Clr Drug Dosing 92.6 eGFR 87.17 BUN/Creatinine Ratio 20.8 H Glucose 127 H POC Glucose (other) 125 H Calcium 10.1 POC Ioniz Calcium Jonathan 1.20 Magnesium 1.9 Total Bilirubin 0.7 AST 16 ALT < 3 L Alkaline Phosphatase 49 Troponin I High Sens 4.1 Total Protein 7.4 Albumin 4.2 Globulin 3.2 Albumin/Globulin Ratio 1.3 Urine Color Urine Appearance Urine pH Ur Specific [place] Urine Protein Urine Glucose (UA) Urine Ketones Urine Blood Urine Nitrite Urine Bilirubin Urine Urobilinogen Ur Leukocyte Esterase Urine Comment Blood Type O Positive Antibody Screen NEGATIVE 06/24/25 20:38 WBC RBC Hgb POC Hgb Hct POC Hct MCV MCH MCHC RDW Std Deviation RDW Coeff of Elinor Plt Count MPV Immature Gran % (Auto) Neut % (Auto) Lymph % (Auto) Hartley % (Auto) Eos % (Auto) Baso % (Auto) Neut # (Auto) Lymph # (Auto) Hartley # (Auto) Eos # (Auto) Baso # (Auto) Immature Gran # (Auto) PT INR APTT PTT Ratio POC Sodium Sodium POC Potassium Potassium POC Chloride Chloride Carbon Dioxide POC Total CO2 Anion Gap POC Anion Gap POC BUN BUN Creatinine POC Creatinine Est Cr Clr Drug Dosing eGFR BUN/Creatinine Ratio Glucose POC Glucose (other) Calcium POC Ioniz Calcium Jonathan Magnesium Total Bilirubin AST ALT Alkaline Phosphatase Troponin I High Sens Total Protein Albumin Globulin Albumin/Globulin Ratio Urine Color Pending Urine Appearance Pending Urine pH Pending Ur Specific [place] Pending Urine Protein Pending Urine Glucose (UA) Pending Urine Ketones Pending Urine Blood Pending Urine Nitrite Pending Urine Bilirubin Pending Urine Urobilinogen Pending Ur Leukocyte Esterase Pending Urine Comment Pending Blood Type Antibody Screen Diagnostic Findings Chest X-Ray 06/24/25 16:15 Chest radiograph, one view History: Neuro deficit Comparison: 05/25/2017 Findings: Single AP view of the chest performed. No focal consolidation or pleural effusion. No pneumothorax. The cardiomediastinal silhouette is within normal limits. Normal pulmonary vascularity. No evidence for lymphadenopathy. No visualized bony or soft tissue abnormality. Impression: Normal chest radiograph Electronically signed by Syd Slade 06-24-2025 6:[address] 06/24/25 16:15 Clinical History: Possible stroke. Technique: Axial computed tomography images were obtained of the brain from the vertex to the skull base without intravenous contrast. Findings: There is no sign of intracranial hemorrhage. There is normal estrella-white matter differentiation with no sign of acute or old infarction. No midline shift or other form of herniation is identified. There is no hydrocephalus. No obvious mass lesion is seen on this noncontrast examination. The visualized portions of the orbits and paranasal sinuses appear unremarkable. The mastoid air cells appear clear Impression: Unremarkable noncontrast CT of the brain These findings were discussed with Dr. Vasquez at 4:48 PM on 06/24/2025 Electronically signed by Jason Armas 06-24-2025 4:49 PM Head CTA 06/24/25 16:15 Technique: Axial computed tomography images were obtained of the brain after the administration of intravenous contrast according to the CT angiogram protocol Findings: No definite stenosis or aneurysm is seen of the anterior, middle, or posterior cerebral artery circulations. The visualized vertebral arteries and the basilar artery appear unremarkable Impression: No definite stenosis or aneurysm of the intracranial arteries These findings were discussed with Dr. Vasquez at 4:48 PM on 06/24/2025 Electronically signed by Jason Armas 06-24-2025 4:50 PM Neck CTA 06/24/25 16:15 Technique: Axial computed tomography images were obtained of the neck after the administration of intravenous contrast according to the CT angiogram protocol Findings: No stenosis is seen of the common carotid arteries bilaterally. There is mild plaque within the carotid bulbs bilaterally, without significant stenosis. The remainder of the internal carotid arteries appear patent bilaterally. No stenosis of the external carotid arteries is seen The vertebral arteries are patent bilaterally with no significant stenosis seen. The visualized thoracic aorta appears unremarkable There is multilevel degenerative disc disease and osteoarthritis of the cervical spine. Impression: No definite stenosis of the neck arteries Electronically signed by Jason Armas 06-24-2025 4:52 PM ECG Additional Comments: EKG - my reading - NSR, 1st degree AV block, IRBBB, nonspecific ST segment flattening anterior leads; no acute ST Changes Code Status & VTE Plan Code Status full code PG Care Time/CCT Total # of Minutes Spent Total Time Spent with Patient: Total time spent is greater than 50% in coordination of care (as documented) at patient's floor/unit and/or counseling patient: Coding Level of Care Code 15268 INT INP/OBS CARE 3/75MIN Diagnoses Dizziness R42 Nausea & vomiting R11.2 Prediabetes R73.03 Facial droop R29.810 Parkinsonism G20 HTN (hypertension) I10 Hypokalemia E87.6
[2025-06-24] MEDS: ASPIRIN CHEW 324 MG PO STA (17:45)
--- NOTE | 2025-06-24 18:02 | Emergency Department Note ---
Impression & Plan Dizziness, Facial droop ED Provider Note Diagnosis: Facial droop, dizziness Disposition: Admission CHIEF COMPLAINT: Generalized weakness HPI: Patient is a 64-year-old male presenting with complaint of not feeling himself. Patient was at the dentist today and had a cleaning performed and when they sat him up from the cleaning he developed acute dizziness and lightheadedness. Patient vomited and had incontinence of urine. Patient denies any active chest pain or shortness of breath. Patient very shaky and states he does not feel himself at this time. Patient's at bedside upon my examination and he has a new right sided facial droop. Stroke alert was activated at this time. Patient does have a history of Parkinson's and was started on new medication yesterday. PAST MEDICAL HISTORY: See Below PAST SURGICAL HISTORY: See Below SOCIAL HISTORY: See Below HOME MEDICATIONS: See Below ALLERGIES: See Below VITALS: See Below PHYSICAL EXAMINATION: GENERAL: Well appearing, well nourished, NAD, non-toxic. EYE EXAM: Normal conjunctiva. OROPHARYNX: Moist mucus membranes. Grossly normal dentition. NECK: Supple, LUNGS: Clear to auscultation. Normal chest wall mechanics. HEART: NSR ABDOMEN: Abdomen soft, non-tender, normo-active bowel sounds, no masses, no rebound or guarding BACK: No CVA TTP. SKIN: No rashes and no bruising. UPPER EXTREMITIES: Upper extremities are grossly normal LOWER EXTREMITIES: Grossly normal, no edema. NEURO EXAM: A&O x3,, right-sided facial droop, 5 out of 5 muscle strength upper and lower extremities bilaterally, Intact sensation upper and lower extremities bilaterally PSYCH: Cooperative MEDICAL DECISION MAKING: History obtained from: Patient ER Course: Patient 64-year-old male presenting after dental procedure with dizziness facial droop and generalized weakness. Patient has no active chest pain or shortness of breath. Patient's EKG without signs of ischemia. Patient on evaluation in the emergency room bedside with has new right sided facial droop per the . Patient normally has some issues with the left side of his face from his Parkinson's and that is his baseline but this looks new and different to the who is present. Upon confirming this activation of stroke was called. I asked the secretaries to call immediately to [facility] neurology team and reviewed the case with them and they got the computer ready at bedside right when the patient came back from CT scan. Patient was evaluated by neurology team who offered the patient TNK. Patient declined TNK and understood risk benefits of this decision. Patient's case discussed with hospital service who accepts the patient for further treatment and evaluation. Labs (independently interpreted) are significant for: No leukocytosis Imaging results (independently interpreted): Chest x-ray without pneumonia EKG interpretation (independently interpreted): Normal sinus rhythm no ST segment elevation or depression Medications given: Aspirin rectally Consultants: Telemetry stroke team from [facility], evaluated patient at bedside through camera system. I was asked to come bedside and patient was offered TNK. Patient went over the risk-benefit of it with the neurologist on the screen and patient declines the medication at this time. Patient has capacity and understood the risk-benefit of this decision. Patient neurology team recommends loading with aspirin no Plavix at this time admission to the hospital for MRI of the brain and further neurology evaluation. Triage Nursing notes reviewed and agree them. 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) Medical History History of COVID-19 10/2022- home test- fever, aches, pains, cough; resolved HTN (hypertension) Parkinsonism Ulnar neuropathy of both upper extremities Surgical History History of tonsillectomy Hx of colonoscopy Family History Father Acute bacterial endocarditis Hypertension Mother Diabetes Hypertension Stroke Social History Smoking Status: Never smoker Second Hand Exposure: No; Do You Dip or Chew Tobacco: No; Hx Alcohol Use: No Hx Substance Use: No Preferred Language: Albanian Communication Ability: Effective On Air Host Required: No Beliefs That Will Affect Care: None Current Living Situation: Spouse Feels Safe at Home: Yes Assistive Devices: Contacts and Glasses Allergies Allergies Allergy/AdvReac Type Severity Reaction Status Date / Time Penicillins Allergy Unknown RASH Verified 03/21/23 12:53 Sulfa (Sulfonamide Allergy Unknown RASH Verified 03/21/23 12:53 Antibiotics) Home Meds Home Medications Medication Instructions Recorded Confirmed bisacodyl 5 mg tablet,delayed 5 mg PO HS 03/15/23 03/21/23 release (Dulcolax (bisacodyl)) carbidopa 50 mg-levodopa 200 1 tab PO QID 03/15/23 03/21/23 mg-entacapone 200 mg tablet (Stalevo 200) hydrochlorothiazide 25 mg tablet 25 mg PO QAM 03/15/23 03/21/23 losartan 100 mg tablet 100 mg PO HS 03/15/23 03/21/23 venlafaxine 150 mg tablet,extended 150 mg PO QAM 03/15/23 03/21/23 release 24 hr Results & Data (ED) Vital Signs Vital Signs - 24 hr 06/24/25 15:50 06/24/25 16:09 06/24/25 16:09 Temperature 36.5 C Temperature Source Oral Pulse Rate 69 Pulse Rate [Apical] 65 Pulse Rate from SpO2 Sensor Respiratory Rate 20 28 H Respiratory Effort / Characteristics Spontaneous Respiratory Depth Respiratory Pattern Tachypnea Blood Pressure 134/84 Blood Pressure [Right Arm] 137/86 Blood Pressure Mean 100 Blood Pressure Mean [Right Arm] 103 Blood Pressure Position [Right Arm] Semi-fowlers Pulse Oximetry 95 98 97 Oxygen Delivery Method Room Air Room Air Room Air Sepsis Recent Fever Within 48 Hours No Sepsis New/Unexplained Change in Mental Status N/A Sepsis Action Taken by Nursing No Action Required 06/24/25 16:09 06/24/25 16:42 06/24/25 16:42 Temperature Temperature Source Pulse Rate 62 63 Pulse Rate [Apical] Pulse Rate from SpO2 Sensor 64 Respiratory Rate 20 Respiratory Effort / Characteristics Respiratory Depth Normal Respiratory Pattern Blood Pressure Blood Pressure [Right Arm] Blood Pressure Mean Blood Pressure Mean [Right Arm] Blood Pressure Position [Right Arm] Pulse Oximetry 99 Oxygen Delivery Method Room Air Sepsis Recent Fever Within 48 Hours Sepsis New/Unexplained Change in Mental Status Sepsis Action Taken by Nursing 06/24/25 16:45 06/24/25 17:00 Temperature Temperature Source Pulse Rate Pulse Rate [Apical] 65 69 Pulse Rate from SpO2 Sensor Respiratory Rate 22 18 Respiratory Effort / Characteristics Non-Labored Spontaneous Respiratory Depth Normal Respiratory Pattern Regular Blood Pressure Blood Pressure [Right Arm] 137/88 147/93 H Blood Pressure Mean Blood Pressure Mean [Right Arm] 104 111 Blood Pressure Position [Right Arm] Semi-fowlers Semi-fowlers Pulse Oximetry 97 97 Oxygen Delivery Method Room Air Room Air Sepsis Recent Fever Within 48 Hours Sepsis New/Unexplained Change in Mental Status Sepsis Action Taken by Nursing Laboratory Data 06/24/25 16:10 06/24/25 16:10 Lab Results 06/24/25 06/24/25 Range/Units 16:10 16:19 WBC 5.81 (4.8-10.8) K/ul RBC 4.59 L (4.70-6.10) M/uL Hgb 14.7 (14.0-18.0) g/dl POC Hgb 14.6 (14.0-18.0) g/dl Hct 41.1 L (42.0-52.0) % POC Hct 43 (42-52) % MCV 89.5 (80.0-100.0) fL MCH 32.0 (25.0-34.0) pg MCHC 35.8 (32.0-36.0) g/dL RDW Std Deviation 41.4 (36.4-46.3) fL RDW Coeff of Elinor 12.7 (11.5-14.5) % Plt Count 191 (130-400) K/uL MPV 10.8 (9.4-12.4) fL Immature Gran % (Auto) 0.3 % Neut % (Auto) 45.9 % Lymph % (Auto) 36.0 % Otoe % (Auto) 14.5 % Eos % (Auto) 2.6 % Baso % (Auto) 0.7 % Neut # (Auto) 2.67 (1.40-6.50) K/uL Lymph # (Auto) 2.09 (1.20-3.40) K/uL Otoe # (Auto) 0.84 H (0.11-0.59) K/uL Eos # (Auto) 0.15 (0.00-0.50) K/uL Baso # (Auto) 0.04 (0.00-0.20) K/uL Immature Gran # (Auto) 0.02 (0.01-0.20) K/uL PT 10.4 (9.0-12.0) Seconds INR 1.0 (0.9-1.1) APTT 21 (21-31) Seconds PTT Ratio 0.8 POC Sodium 137 (135-144) mmol/L Sodium 136 (136-145) mmol/L POC Potassium 3.2 L (3.3-5.0) mmol/L Potassium 3.3 L (3.5-5.1) mmol/L POC Chloride 100 L (101-112) mmol/L Chloride 100 (98-107) mmol/L Carbon Dioxide 25 (21-32) mmol/L POC Total CO2 25 (24-31) mmol/L Anion Gap 11 (3-11) POC Anion Gap 16.0 (16-25) mmol/L POC BUN 23 H (7-18) mg/dl BUN 20 (6-23) mg/dl Creatinine 0.96 (0.6-1.4) mg/dl POC Creatinine 1.0 (0.6-1.3) mg/dl Est Cr Clr Drug Dosing 92.6 ml/min eGFR 87.17 BUN/Creatinine Ratio 20.8 H (10-20) Glucose 127 H (70-99(Fasting)) mg/dl POC Glucose (other) 125 H (70-99) mg/dl Calcium 10.1 (8.6-10.3) mg/dl POC Ioniz Calcium Jonathan 1.20 (1.12-1.32) mmol/l Magnesium 1.9 (1.7-2.4) mg/dl Total Bilirubin 0.7 (0.2-1.0) mg/dl AST 16 (13-39) U/L ALT < 3 L (7-52) U/L Alkaline Phosphatase 49 (34-104) U/L Troponin I High Sens 4.1 (0-20) pg/ml Total Protein 7.4 (6.0-8.3) gm/dl Albumin 4.2 (3.4-5.0) gm/dl Globulin 3.2 (2.5-4.0) gm/dl Albumin/Globulin Ratio 1.3 (0.9-2) Administered Medications Discontinued Medications Aspirin (Aspirin Chew 324 Mg) 324 mg PO NOW STA Stop: 06/24/25 17:14 Last Admin: 06/24/25 17:45 Dose: Not Given Documented By: SHELLY Sodium Chloride (Nss) 1,000 mls @ 999 mls/hr IV .Q1H1M ONE Stop: 06/24/25 17:21 Last Admin: 06/24/25 16:31 Dose: 999 mls/hr Documented By: WILY Ioversol (Optiray 320 125ml) 120 ml IV ONCE ONE Stop: 06/24/25 16:31 Last Admin: 06/24/25 16:31 Dose: 120 ml Documented By: ZOILA Ondansetron HCl (Ondansetron Inj 2 Mg/Ml 2 Ml Vial) 4 mg IV NOW STA Stop: 06/24/25 16:16 Last Admin: 06/24/25 16:31 Dose: 4 mg Documented By: WILY Imaging Data Radiologist's Impression: Head CT 06/24/25 16:15 Clinical History: Possible stroke. Technique: Axial computed tomography images were obtained of the brain from the vertex to the skull base without intravenous contrast. Findings: There is no sign of intracranial hemorrhage. There is normal estrella-white matter differentiation with no sign of acute or old infarction. No midline shift or other form of herniation is identified. There is no hydrocephalus. No obvious mass lesion is seen on this noncontrast examination. The visualized portions of the orbits and paranasal sinuses appear unremarkable. The mastoid air cells appear clear Impression: Unremarkable noncontrast CT of the brain These findings were discussed with Dr. Vasquez at 4:48 PM on 06/24/2025 Electronically signed by Jason Armas 06-24-2025 4:49 PM Head CTA 06/24/25 16:15 Technique: Axial computed tomography images were obtained of the brain after the administration of intravenous contrast according to the CT angiogram protocol Findings: No definite stenosis or aneurysm is seen of the anterior, middle, or posterior cerebral artery circulations. The visualized vertebral arteries and the basilar artery appear unremarkable Impression: No definite stenosis or aneurysm of the intracranial arteries These findings were discussed with Dr. Vasquez at 4:48 PM on 06/24/2025 Electronically signed by Jason Armas 06-24-2025 4:50 PM Neck CTA 06/24/25 16:15 Technique: Axial computed tomography images were obtained of the neck after the administration of intravenous contrast according to the CT angiogram protocol Findings: No stenosis is seen of the common carotid arteries bilaterally. There is mild plaque within the carotid bulbs bilaterally, without significant stenosis. The remainder of the internal carotid arteries appear patent bilaterally. No stenosis of the external carotid arteries is seen The vertebral arteries are patent bilaterally with no significant stenosis seen. The visualized thoracic aorta appears unremarkable There is multilevel degenerative disc disease and osteoarthritis of the cervical spine. Impression: No definite stenosis of the neck arteries Electronically signed by Jason Armas 06-24-2025 4:52 PM Discharge Plan Visit Data Chief Complaint: Cardiac Assessment Stated Complaint: DIZZY, NAUSEOUS, ARM NUMBNESS, HEAD PAIN, VOMIT ED Provider: Tavon Vasquez Discharge Problem: Dizziness, Facial droop Condition: Serious Forms Stand Alone Forms: [facility] [employer] Prescriptions Prescriptions: No Action bisacodyl [Dulcolax (bisacodyl)] 5 mg Tablet,Delayed Release (Dr/Ec) 5 mg PO HS hydrochlorothiazide 25 mg Tablet 25 mg PO QAM losartan 100 mg Tablet 100 mg PO HS [id number] [Stalevo 200] 50-200-200 mg Tablet 1 tab PO QID venlafaxine 150 mg Tablet Extended Release 24hr 150 mg PO QAM Referrals Referrals: PCP,NO [Primary Care Provider] -
--- NOTE | 2025-06-24 18:04 | XRay Report ---
Chest radiograph, one view History: Neuro deficit Comparison: 05/25/2017 Findings: Single AP view of the chest performed. No focal consolidation or pleural effusion. No pneumothorax. The cardiomediastinal silhouette is within normal limits. Normal pulmonary vascularity. No evidence for lymphadenopathy. No visualized bony or soft tissue abnormality. Impression: Normal chest radiograph Electronically signed by Syd Slade 06-24-2025 6:03 PM
[2025-06-24] MEDS: ASPIRIN 300 MG SUPP PR ONE (18:36)
[2025-06-24] MEDS: MECLIZINE HCL 25 MG TAB PO STA (18:51)
--- NOTE | 2025-06-24 19:32 | Magnetic Resonance Report ---
MRI of the brain performed without IV contrast History: Dizziness Comparison: 11/10/2016, 08/22/2024 Technique: Sagittal T1-weighted and axial T2-weighted, T2/FLAIR and diffusion-weighted with ADC map images of the brain were obtained without IV contrast. Findings: No evidence for intracranial mass lesion, mass-effect, midline shift, or abnormal extra-axial fluid collection. The ventricles and sulci are within normal limits for age. No abnormally reduced diffusion or evidence for acute infarct. Normal intravascular flow voids. Impression: Normal brain MRI Electronically signed by Syd Slade 06-24-2025 7:32 PM
[2025-06-24] MEDS ORDERED: PROCHLORPERAZINE 5 ML IV ONE (19:48)
[2025-06-24] MEDS: PROCHLORPERAZINE 1 ML IV ONE (20:06)
[2025-06-24 20:57] LABS: Appearance Urine Clear (Clear); Glucose Urine UA Negative (Negative)
[2025-06-24] MEDS ORDERED: ONDANSETRON INJ 2 MG/ML 2 ML VIAL IV PRN (21:41)
[2025-06-24] MEDS ORDERED: PHARMACIST DISCHARGE MED REC CONSULT PRN (21:41)
[2025-06-24] MEDS: NSS + 20MEQ KCL 20 MEQ/1,000 ML BAG IV SCH (22:27)
[2025-06-24] MEDS: LOSARTAN POTASSIUM 50 MG TAB PO SCH (22:31)
[2025-06-24] MEDS: ACETAMINOPHEN 325 MG TAB PO PRN (22:36)
[2025-06-24] MEDS: CARBIDOPA/LEVODOPA 1 EACH CAPSULE.ER PO SCH (23:02)
[2025-06-25 05:25] LABS: Anion Gap 8.0 (3-11); Blood Urea Nitrogen 16.0 mg/dl (6-23); Calcium 9.2 mg/dl (8.6-10.3); Carbon Dioxide 23.0 mmol/L (21-32); Chloride 105.0 mmol/L (98-107); Cholesterol 160.0 mg/dl (0-200); Creatinine Clr Calc Pharmacy 98.8 ml/min; Glucose 107.0 mg/dl (70-99(Fasting)); HDL Cholesterol 41.0 mg/dl; Potassium 3.4 mmol/L (3.5-5.1); Sodium 136.0 mmol/L (136-145); Triglycerides 101.0 mg/dl (0-150)
[2025-06-25 05:42] LABS: Thyroid Stimulating Hormone 1.412 uIu/ml (0.300-4.500)
[2025-06-25 07:30] LABS: Hemoglobin A1C 6.2 % (4.5-5.6)
--- NOTE | 2025-06-25 09:53 | XCELERA ---
[id number]
[2025-06-25] MEDS ORDERED: STROKE PATIENT DISCHARGE STA (14:48)
--- NOTE | 2025-06-25 14:59 | History & Physical Report ---
Date of Service June 25, 2025 Assessment & Plan (1) Dizziness: (2) Nausea & vomiting: (3) Prediabetes: (4) Facial droop: (5) Hypokalemia: Plan Pleasant 64yo male with Parkinson's disease, anxiety disorder, HTN, pre-T2DM, and chronic insomnia presents with severe dizziness along with nausea/vomiting starting earlier today after having a dental cleaning at his local dentist office. #severe dizziness, nausea, vomiting - -although he does not describe discrete vertigo, his symptoms are worsened by movement and in particular head movements -he does not have visual complaints, neuro exam is wnl, and denies any tinnitus or hearing loss today -he denies chronic orthostatic symptoms, but did c/o being thirsty during the visit and his mouth is very dry -further, his HCTZ dose was increased about 2 weeks ago -suspect that if we had the ability to check his orthostatic BPs they would be positive -in light of ?right facial droop along with his presenting symptoms will obtain MRI brain - r/o acute CVA -rectal aspirin ordered by ER physician at recommendation of telestroke -of note - by the time of my assessment there was no facial droop or asymmetry, and neuro exam was wnl -give 2 liters of IV fluid, keep NPO except sips/chips/meds due to severe nausea/vomiting, and hold HCTZ; also lower losartan dose by 1/2 -in the event this is some form of atypical vertigo will give meclizine 25mg PO x 1 now -PT/OT evals tomorrow -consider neuro evaluation if symptoms are refractory/persistent or if MRI brain is + for CVA -check lipids, a1c in am as part of TIA/stroke work-up #hypokalemia - -add IV KCL to his IV fluids -repeat BMP am -mag level wnl today -hold HCTZ #HTN - -hold HCTZ -lower losartan dose by 1/2 until we can check formal orthostatic BPs #Parkinson's disease - -follows with [facility] [place] -patient is on non-formulary medicine for his PD - to bring home stock; order written to allow home use of Crexont -PT/OT evals #anxiety disorder - -long-standing, severe at times -if nausea/vomiting persist consider low-dose ativan to help with GI symptoms and anxiety #pre-DM - -check a1c in am #chronic constipation - -cont daily dulcolax -consider adding miralax as well (patient reports a small, hard stool earlier today) #DVT proph - -add chemical means if he stays hospitalized beyond tomorrow pt's updated at bedside during the admission process Admission and Anticipated Discharge Date Admission Date: June 24, 2025 History of Present Illness Primary Care Provider: NO PCP Allergies Allergy/AdvReac Type Severity Reaction Status Date / Time Penicillins Allergy Intermediate RASH Verified 06/24/25 18:56 Sulfa (Sulfonamide Allergy Intermediate RASH Verified 06/24/25 18:56 Antibiotics) Home Medications Medication Instructions Recorded Confirmed Type losartan 100 mg tablet 100 mg PO HS 03/15/23 06/24/25 History carbidopa 70 mg-levodopa ER 280 mg 2 cap PO TID 06/24/25 06/24/25 History capsule,immed and extended release (Crexont) metformin 500 mg tablet,extended 500 mg PO QDD 06/24/25 06/24/25 History release 24 hr modafinil 100 mg tablet 100 mg PO QAM 06/24/25 06/24/25 History aspirin 81 mg tablet 81 mg PO DAILY #90 tabs 06/25/25 Rx hydrochlorothiazide 25 mg tablet 25 mg PO QAM #0 tabs 06/25/25 06/24/25 Rx meclizine 12.5 mg tablet 12.5 mg PO QID PRN dizziness or 06/25/25 Rx vertigo #10 tabs Past Med/Surg History Problem List (Updated 06/24/25 @ 20:51 by Reilly Nice MD) Hypokalemia Nausea & vomiting Prediabetes Facial droop (Acute) Dizziness (Acute) Encounter for pre-operative examination Fecal impaction (Acute) Near syncope (Acute) Paresthesia (Acute) Nocturnal leg cramps (Acute) Neutropenia (Acute) Abnormal head MRI (Acute) Medical History (Updated 06/24/25 @ 20:51 by Reilly Nice MD) Ulnar neuropathy of both upper extremities Parkinsonism Atypical Parkinsonism HTN (hypertension) History of colon polyps History of COVID-19 10/2022- home test- fever, aches, pains, cough; resolved Surgical History Hx of colonoscopy History of tonsillectomy Family History (Updated 06/24/25 @ 20:42 by Reilly Nice MD) Father Acute bacterial endocarditis Hypertension Mother Diabetes Hypertension Stroke Brother Stroke Social History (Updated 06/24/25 @ 20:42 by Reilly Nice MD) Smoking Status: Never smoker Second Hand Exposure: No; Do You Dip or Chew Tobacco: No; Hx Alcohol Use: No Hx Substance Use: No Preferred Language: Armenian Communication Ability: Effective Binding Machine Operator Required: No Beliefs That Will Affect Care: None marital status: Current Living Situation: Spouse current occupation: retired employment law attorney How many Children do You have: 2 Feels Safe at Home: Yes Assistive Devices: Contacts and Glasses Physical Exam Physical Exam: gen - awake, alert, lying in bed, anxious, tearful at times eyes - PERRL, about 2mm; EOMI; no nystagmus; visual lynn full by direct confrontation HENT - no facial droop (symmetric cheeks, symmetric smile); mouth - dry MM, no lesions neck - no bruits, JVD, or lymph nodes; no goiter heart - RRR, s1 s2, no murmur lungs - CTA b/l abd - soft, mildly distended, BS+, NT, no HSM ext - no edema, pulses 2+ b/l skin - no rash neuro - CN 3-12 intact; speech clear/fluent (no aphasia, no dysarthria); no facial droop; finger/nose/finger maneuver w/o ataxia; strength 5/5 x 4 exts; DTRs 2+ b/l upper & lower ext; tremor left hand/arm psych - a/o x 3, anxious Results & Data Results & Data Vital Signs (Past 12 Hours) Vital Signs Temp Pulse Pulse Pulse Resp BP Pulse Ox 06/25/25 14:03 82 06/25/25 13:48 80 167/95 H 06/25/25 13:45 75 144/91 H 06/25/25 13:44 78 148/77 H 06/25/25 11:38 36.4 C L 74 17 144/83 H 93 06/25/25 07:52 36.7 C 71 19 155/89 H 93 06/25/25 07:12 70 06/25/25 04:20 36.6 C 63 18 110/69 94 O2 Del Method 06/25/25 14:03 06/25/25 13:48 06/25/25 13:45 06/25/25 13:44 06/25/25 11:38 Room Air 06/25/25 07:52 Room Air 06/25/25 07:12 06/25/25 04:20 Room Air PG Care Time/CCT Total # of Minutes Spent Total Time Spent with Patient: Total time spent is greater than 50% in coordination of care (as documented) at patient's floor/unit and/or counseling patient: Coding Diagnoses Dizziness R42 Nausea & vomiting R11.2 Prediabetes R73.03 Facial droop R29.810 Hypokalemia E87.6
[2025-06-25] MEDS: POTASSIUM CHLORIDE 10 MEQ TABCR PO STA (15:15)
--- NOTE | 2025-06-26 06:07 | Electrocardiogram Report ---
Test Reason : Blood Pressure : */* mmHG Vent. Rate : 64 BPM Atrial Rate : 64 BPM P-R Int : 230 ms QRS Dur : 112 ms QT Int : 430 ms P-R-T Axes : 50 16 8 degrees QTcB Int : 443 ms Sinus rhythm with 1st degree A-V block Incomplete right bundle branch block Cannot rule out Anterior infarct , age undetermined Nonspecific T wave abnormality Abnormal ECG When compared with ECG of 25-May-2017 11:38, Incomplete right bundle branch block is now Present Minimal criteria for Anterior infarct are now Present Confirmed by Melvin Grove ([id number]) on 06/26/2025 6:06:56 AM Referred By: Confirmed By: Melvin Grove
--- NOTE | 2025-07-01 09:57 | Discharge Summary ---
Discharge Summary Date of Service July 01, 2025 Principal Dx & Hospital Course #1 = Principal Diagnosis (1) Dizziness: (2) Nausea & vomiting: (3) Prediabetes: (4) Facial droop: (5) Hypokalemia: Admission HPI Per Admitting Provider Pleasant 64yo male with Parkinson's disease, anxiety disorder, HTN, pre-T2DM, and chronic insomnia presents with severe dizziness along with nausea/vomiting starting earlier today after having a dental cleaning at his dentist. Mr Mclaughlin was in his usual state of health prior to going to the dentist. In fact he walked his dog this am and had no problem with such. At the dental office he was having a routine cleaning. He was in the chair for at least 30 minutes. He felt that his neck was being stretched while in the chair and he simply was uncomfortable. When the cleaning was finished he attempted to sit up in the chair and had immediate dizziness and nausea. The dizziness was NOT a spinning sensation/vertigo/rotational feeling. He stated the dizziness feels like he could pass out. He vomited while at the dental office and also had loss of urine (patient himself did not mention this, but it was in his ER record). He denies having had diplopia, visual field cut, sensory loss of any limb, difficulty speaking, or motor difficulty. However, after being brought to the ER by his , there was some concern for right facial droop. Due to this concern a stroke alert was called. By report the stroke physician recommended lytic therapy but this was declined by the patient. During my admission assessment he was anxious and tearful. He repeatedly said that he "simply does not feel well." At one point while I was examining him he developed nausea again but fortunately he did not vomit. Patient reports no recent illnesses. His HCTZ dose was increased to 25mg BID about 2 weeks ago. He was also started on metformin once daily recently. Discharge Plan Discharge Items Patient Disposition: Home - Self-Care Reason For Visit: SEVERE DIZZINESS Discharge Diagnosis: 1. severe, acute dizziness with nausea/vomiting - resolved -cause: inner ear vertigo vs "TIA" event vs blood-pressure related/dehydration vs combination of factors 2. low potassium - due to hydrochlorothiazide use, vomiting, etc. 3. high blood pressure 4. Parkinson's disease 5. prediabetes; hemoglobin a1c 6.2% 6. question of right facial droop - resolved; no stroke seen on MRI brain Activity: As commented below Activity Comment: light activities today & tomorrow, then gradually resume normal activity Driving/Machine Use: May resume driving as long as not having any vertigo or dizziness symptoms Non-emergency contact: Primary Care Provider and Neurologist Call non-emergency contact if: you have any medication questions and your sym ptoms worsen Follow-up/Referrals: Becky Seth CRNP [Outside Practitioners] - (within 1 week) Monika Brooks PA-C [Physician Sleep Technician] - 07/13/25 ([facility] ) Diet: Carb Consistent or DM2 Ambulatory Orders: Basic Metabolic Panel (Routine) Timeframe: 20250626 Location: Determined by Patient Ordered By: Reilly Courtney Attending Provider Instructions: Mr Mclaughlin, You were hospitalized after developing severe dizziness with nausea/vomiting following a dental cleaning. CT scans of your blood vessels of the head & neck were normal (no narrowing, no aneurysm, etc). MRI Brain did not show a stroke (either new or old). Echocardiogram showed normal heart function. Telemetry monitoring showed normal heart rhythm. It was uncertain if your symptoms were due to dehydration/blood pressure related vs inner ear vertigo vs a "TIA" event (transient ischemic attack, which is a temporary neurological event that resolves itself usually within a few hours) vs a combination of factors. Again we did not find a stroke on your brain MRI. You improved with IV fluids, nausea medicine, and supportive care. By the morning of 06/25 you were feeling back to normal. Recommendations - 1. in the event this was a TIA event please take - -aspirin 81mg daily -this can be purchased [id number]. -caution if you are using ibuprofen for back pain at the same time as aspirin; this can lead to stomach upset, stomach ulcers, etc. -consider taking an [id number] antacid (prilosec, nexium, etc) if you have to take ibuprofen while on aspirin 2. in the event this was an inner ear vertigo episode, and if you have similar symptoms in the future, you can take - -meclizine 12.5mg every 6 hours as needed for dizziness/vertigo -side effects - dry mouth, sedation 3. please hold your metformin today. On Sunday, 06/26, please have a blood draw at the hospital or one of the [facility] offices that has a lab. If your blood test for your creatinine (kidney number) is normal on this blood draw you will be able to resume your metformin at that time. 4. please LOWER your hydrochlorothiazide to 25mg once daily. 5. when you check your blood pressure at home please get a sitting reading as well as a standing reading; keep a log of these values for your family doctor. Follow-up - -see [facility] in July as scheduled -see your family doctor within 1 week Return to [facility] if - -you have recurrent severe dizziness/vertigo -you have uncontrollable nausea/vomiting -you have any other new neurological symptoms (weakness of any limb, numbness of any limb, vision loss or double vision, difficulty speaking or swallowing, etc) -any other concerns It was our pleasure to care for you! -Reilly Nice Pending Studies at Discharge: No Stand-Alone Forms: My [facility], Smoking Cessation, Medications to Prevent Stroke Medications and DC Order Prescriptions: New meclizine 12.5 mg tablet 12.5 mg PO QID PRN (Reason: dizziness or vertigo) Qty: 10 0RF aspirin 81 mg tablet 81 mg PO DAILY Qty: 90 1RF Rx Instructions: purchase [id number] Continued losartan 100 mg Tablet 100 mg PO HS modafinil 100 mg tablet 100 mg PO QAM Crexont 70-280 mg capsule,IR -extend rel,biphase 2 cap PO TID Rx Instructions: 0730, 1430, 2130--- WILL BRING PT'S OWN MED IN TO USE. Changed hydrochlorothiazide 25 mg Tablet 25 mg PO QAM Qty: 0 0RF Held metformin 500 mg tablet extended release 24 hr 500 mg PO QDD Hold Instructions: Resume on 06/26/25. can resume on 06/26 IF your creatinine blood level returns normal; you will need to have a blood test on 06/26 to check the creatinine level Discharge Orders: Discharge Order (Routine); Ordered 06/25/25 Ordered By: Reilly Joshua/Other Patient Handouts: Prediabetes, What Is a TIA?, 5 Steps for Eating Healthier, ED Dizziness, Uncertain Cause Admission Data Admit Date/Time: 06/24/25 18:51 Attending Provider: Reilly Nice Admit Provider: Reilly Nice Primary Care Provider: PCP,NO Other Providers: Reilly Nice Other Interventions: Discharge Summary Assessment (RN) Last Done: 06/25/25 15:38 Hospital Stay Data Consultations 06/24/25 17:36 ED Decision to Admit Stat Diagnostic Imagining Performed 06/24/25 16:15 CT angio head w con Stat CT angio neck with con Stat CT head/brain wo con Stat 06/24/25 18:39 MR brain wo con Urgent Pending Results Patient Have Any Pending Studies at Discharge: No Discharge Instructions Given to Patient (Per Discharging Provider) Mr Mclaughlin, You were hospitalized after developing severe dizziness with nausea/vomiting following a dental cleaning. CT scans of your blood vessels of the head & neck were normal (no narrowing, no aneurysm, etc). MRI Brain did not show a stroke (either new or old). Echocardiogram showed normal heart function. Telemetry monitoring showed normal heart rhythm. It was uncertain if your symptoms were due to dehydration/blood pressure related vs inner ear vertigo vs a "TIA" event (transient ischemic attack, which is a temporary neurological event that resolves itself usually within a few hours) vs a combination of factors. Again we did not find a stroke on your brain MRI. You improved with IV fluids, nausea medicine, and supportive care. By the morning of 06/25 you were feeling back to normal. Recommendations - 1. in the event this was a TIA event please take - -aspirin 81mg daily -this can be purchased [id number]. -caution if you are using ibuprofen for back pain at the same time as aspirin; this can lead to stomach upset, stomach ulcers, etc. -consider taking an epkq-ycw-eigfqoj antacid (prilosec, nexium, etc) if you have to take ibuprofen while on aspirin 2. in the event this was an inner ear vertigo episode, and if you have similar symptoms in the future, you can take - -meclizine 12.5mg every 6 hours as needed for dizziness/vertigo -side effects - dry mouth, sedation 3. please hold your metformin today. On Sunday, 06/26, please have a blood draw at the hospital or one of the [facility] offices that has a lab. If your blood test for your creatinine (kidney number) is normal on this blood draw you will be able to resume your metformin at that time. 4. please LOWER your hydrochlorothiazide to 25mg once daily. 5. when you check your blood pressure at home please get a sitting reading as well as a standing reading; keep a log of these values for your family doctor. Follow-up - -see [facility] in July as scheduled -see your family doctor within 1 week Return to [facility] if - -you have recurrent severe dizziness/vertigo -you have uncontrollable nausea/vomiting -you have any other new neurological symptoms (weakness of any limb, numbness of any limb, vision loss or double vision, difficulty speaking or swallowing, etc) -any other concerns It was our pleasure to care for you! -Reilly Nice Coding Diagnoses Dizziness R42 Nausea & vomiting R11.2 Prediabetes R73.03 Facial droop R29.810 Hypokalemia E87.6
== END 2025-06-25 16:52 | disposition home or self-care (01) ==
LOC: 2S 15:48 → ED 15:48 → 2S 21:15